=== PATIENT | female | born 1980 | race Caucasian/White ===

== ENCOUNTER 2017-08-26 21:28 | Emergency (ER) | payer OTHER ==
[~2017-08-26] VITALS: Ht 152.4 cm; Wt 86.6 kg
[2017-08-26] MEDS ORDERED: KETO10TA2 PO (23:52)
[2017-08-26] MEDS ORDERED: AMOX-CLAV 875-1 EACH PO (23:52)
[2017-08-26] MEDS ORDERED: CIPRODEX OTIC7.5 ML OT (23:52)
== END 2017-08-27 01:01 | disposition home or self-care (01) ==
LOC: ER 21:28
DX: H65.92 Unspecified nonsuppurative otitis media, left ear (principal); H60.8X2 Other otitis externa, left ear